=== PATIENT | female | born 1945 | race Caucasian/White ===

== ENCOUNTER 2021-09-14 12:39 | Outpatient (CLI) | payer MEDICARE | END 2021-09-14 12:40 | disposition home or self-care (01) | LOC: BICULT 12:39 | PROVIDERS: ATTEND Urology | DX: N39.0 Urinary tract infection, site not specified (principal); N28.1 Cyst of kidney, acquired | CPT/HCPCS: 76770 ==

== ENCOUNTER 2023-07-17 12:56 | Outpatient (CLI) | payer OTHER | END 2023-07-17 12:57 | disposition home or self-care (01) | LOC: BICMAMMO 12:56 | PROVIDERS: ATTEND Family Medicine | DX: Z12.31 Encounter for screening mammogram for malignant neoplasm of breast (principal); N63.25 Unspecified lump in the left breast, overlapping quadrants; Z80.3 Family history of malignant neoplasm of breast | CPT/HCPCS: 77063; 77067 ==